=== PATIENT | male | born 1955 | race Caucasian/White ===

== ENCOUNTER 2020-08-12 09:04 | Outpatient (CLI) | payer MEDICARE | END 2020-08-12 09:05 | disposition home or self-care (01) | LOC: BICRAD 09:04 | PROVIDERS: ATTEND Internal Medicine Pulmonary Disease | DX: R06.00 Dyspnea, unspecified (principal) | CPT/HCPCS: 71046 ==

== ENCOUNTER 2023-03-03 05:08 | Inpatient (IN) | payer MEDICARE ==
[2023-03-03] MEDS ORDERED: Ipratropium/Albuterol 3 ML NEB ONE (05:27)
[2023-03-03] MEDS ORDERED: LevoFLOXacin 750 mg/D5W 150 ml Premix Bag ONE (05:27)
[2023-03-03] MEDS ORDERED: Magnesium 2 GM/50 ML BAG (IN WATER) ONE (05:29)
[2023-03-03 05:33] LABS: #Basophils 0.1 thou/uL (0.0-0.2); #Eosinphils 0.9 thou/uL (0.0-0.7); #Monocytes 0.5 thou/uL (0.11-0.59); #Neutrophils 9.7 thou/uL (1.40-6.50); %Eosinophils 6.8 % (0.0-10.0); %Lymphocytes 12.8 % (21.0-51.0); %Monocytes 4.2 % (0.0-10.0); %Neutrophils 74.9 % (42.0-75.0); Hematocrit 48.7 % (42.0-52.0); Hemoglobin 16.2 g/dL (14.0-18.0); Mean Corpuscular HGB CONC 33.3 g/dL (32.0-36.0); Mean Corpuscular Hemoglobin 30.1 pg (27.0-31.0); Mean Corpuscular Volume 90.5 fl (78.0-98.0); Mean Platelet Volume 10.8 fL (7.4-10.4); Platelet Count 296 10x3/uL (130-400); RBC Distribution Width 13.6 % (11.5-14.5); Red Blood Cell (RBC) Count 5.38 mill/uL (4.70-6.10)
[2023-03-03 05:45] LABS: Analyzer IN Cardio ER; Base Excess -5.7 mEq/L (-2.0 to +3.0); pH (venous) 7.349 (7.32-7.43)
[2023-03-03 05:46] LABS: Chloride (VBG) 107 mmol/L (98-106); Hematocrit-VBG 49 % (42.0-52.0); Hemoglobin (Hb) 16.6 g/dL (12.6-17.4); Potassium (VBG) 4.01 mmol/L (3.70-5.30); Sodium 142 mmol/L (133-146)
[2023-03-03 05:54] LABS: Acetaminophen Less than 10 mcg/mL (10.0-30.0); Alcohol Less than 10.0 mg/dL (Less than 10); Lipase 35 U/L (8-78); Magnesium 1.7 mg/dL (1.6-2.6); Salicylate Less than 8.0 mg/dL (15.0-30.0)
[2023-03-03 05:57] LABS: ALT (SGPT) 23 U/L (8-55); AST (SGOT) 19 U/L (5-34); Albumin 4.5 g/dL (3.4-4.8); Alkaline Phosphatase 69 U/L (40-110); Anion Gap 16 mmol/L (10-20); BUN (Urea Nitrogen) 12 mg/dL (8.4-25.7); Bilirubin, Total 0.7 mg/dL (0.2-1.2); Calc. Creatinine Clearance 0 mL/min (70-130); Calcium 9.5 mg/dL (7.8-10.44); Carbon Dioxide 20 mmol/L (23-31); Chloride 108 mmol/L (98-107); Estimated GFR 62; Globulin 2.5 g/dL (2.4-3.5); Glucose 129 mg/dL (80-115); Potassium 4.2 mmol/L (3.5-5.1); Sodium 140 mmol/L (136-145)
[2023-03-03 05:58] LABS: Troponin I Less than 0.010 ng/mL (< 0.028)
[2023-03-03 06:08] LABS: SARS-CoV-2 NAA Rapid Test Not Detected (NotDetected)
[2023-03-03] MEDS ORDERED: Ipratropium/Albuterol 3 ML NEB NEB PRN (07:32)
[2023-03-03] MEDS ORDERED: Ondansetron PF 4 MG/2 ML Vial IVP PRN (07:33)
[2023-03-03] MEDS ORDERED: Acetaminophen 325 MG TAB PO PRN (07:33)
[2023-03-03 08:42] LABS: Lactic Acid 2.4 mmol/L (0.5-2.2)
[2023-03-03 08:43] LABS: Troponin I Less than 0.010 ng/mL (< 0.028)
[2023-03-03] MEDS ORDERED: cefTRIAXone\\ROCEPHIN 1 GM in Sodium Chloride 0.9% 100 ML IVPB SCH (09:15)
[2023-03-03] MEDS: methylPREDNISolone Sod Succ 40 MG VIAL IVP SCH ×2 (11:45→17:20)
[2023-03-03] MEDS: Doxycycline 100 MG CAP PO SCH ×2 (11:46→20:07)
[2023-03-03] MEDS: Famotidine 20 MG TAB PO SCH ×2 (11:47→20:06)
[2023-03-03] MEDS: guaiFENesin ER 600 MG TAB PO SCH ×2 (11:48→20:07)
[2023-03-03 11:54] LABS: Troponin I Less than 0.010 ng/mL (< 0.028)
[2023-03-03] MEDS: Ipratropium/Albuterol 3 ML NEB NEB SCH ×2 (11:55→18:28)
[2023-03-03] MEDS: Mometasone/Formoterol 200/5 60 PUFF INH SCH (18:29)
[2023-03-04] MEDS: methylPREDNISolone Sod Succ 40 MG VIAL IVP SCH ×4 (00:13→17:27)
[2023-03-04] MEDS: Ipratropium/Albuterol 3 ML NEB NEB SCH ×4 (00:41→18:56)
[2023-03-04 05:34] LABS: #Monocytes 0.3 thou/uL (0.11-0.59); #Neutrophils 10.7 thou/uL (1.40-6.50); %Basophils 0.1 % (0.0-1.0); %Lymphocytes 8.6 % (21.0-51.0); %Monocytes 2.5 % (0.0-10.0); %Neutrophils 88.3 % (42.0-75.0); Hematocrit 43.2 % (42.0-52.0); Hemoglobin 14.6 g/dL (14.0-18.0); Mean Corpuscular HGB CONC 33.8 g/dL (32.0-36.0); Mean Corpuscular Hemoglobin 30.7 pg (27.0-31.0); Mean Corpuscular Volume 90.9 fl (78.0-98.0); Mean Platelet Volume 11.1 fL (7.4-10.4); Platelet Count 275 10x3/uL (130-400); RBC Distribution Width 13.5 % (11.5-14.5); Red Blood Cell (RBC) Count 4.75 mill/uL (4.70-6.10); White Blood Cell (WBC) Count 12.2 10x3/uL (4.8-10.8)
[2023-03-04 06:13] LABS: Anion Gap 11 mmol/L (10-20); BUN (Urea Nitrogen) 14 mg/dL (8.4-25.7); Calc. Creatinine Clearance 78 mL/min (70-130); Calcium 9.3 mg/dL (7.8-10.44); Carbon Dioxide 23 mmol/L (23-31); Chloride 107 mmol/L (98-107); Estimated GFR 71; Glucose 151 mg/dL (80-115); Potassium 4.1 mmol/L (3.5-5.1); Sodium 137 mmol/L (136-145)
[2023-03-04] MEDS: Mometasone/Formoterol 200/5 60 PUFF INH SCH ×2 (06:45→18:58)
[2023-03-04] MEDS: Famotidine 20 MG TAB PO SCH ×2 (08:40→20:18)
[2023-03-04] MEDS: guaiFENesin ER 600 MG TAB PO SCH ×2 (08:40→20:18)
[2023-03-04] MEDS: Doxycycline 100 MG CAP PO SCH ×2 (08:41→20:18)
[2023-03-04] MEDS: cefTRIAXone\\ROCEPHIN 1 GM in Sodium Chloride 0.9% 100 ML IVPB SCH (08:41)
[2023-03-04] MEDS: Benzonatate 100 MG CAP PO SCH ×3 (08:41→20:18)
[2023-03-04] MEDS ORDERED: Loratadine 10 MG TAB PO SCH (11:15)
[2023-03-04] MEDS: HYDROcodone/Acetaminophen 5/325 mg Tablet PO PRN ×2 (11:40→20:19)
[2023-03-04] MEDS: Sodium Chloride 0.65% Nasal 44 ML BOT EA NARE PRN (14:33)
[2023-03-05] MEDS: methylPREDNISolone Sod Succ 40 MG VIAL IVP SCH ×5 (00:45→23:59)
[2023-03-05] MEDS: Ipratropium/Albuterol 3 ML NEB NEB SCH ×6 (01:05→23:29)
[2023-03-05] MEDS: Mometasone/Formoterol 200/5 60 PUFF INH SCH ×2 (07:04→21:49)
[2023-03-05] MEDS: Benzonatate 100 MG CAP PO SCH ×3 (07:33→20:36)
[2023-03-05] MEDS: cefTRIAXone\\ROCEPHIN 1 GM in Sodium Chloride 0.9% 100 ML IVPB SCH (07:33)
[2023-03-05] MEDS: Doxycycline 100 MG CAP PO SCH ×2 (07:34→20:36)
[2023-03-05] MEDS: Famotidine 20 MG TAB PO SCH (07:34)
[2023-03-05] MEDS: guaiFENesin ER 600 MG TAB PO SCH ×2 (07:34→20:36)
[2023-03-05] MEDS: HYDROcodone/Acetaminophen 5/325 mg Tablet PO PRN ×2 (08:25→15:56)
[2023-03-05] MEDS: Sodium Chloride 0.65% Nasal 44 ML BOT EA NARE PRN (08:26)
[2023-03-06] MEDS: guaiFENesin/Codeine 200 mg/20 mg 10 ml Cup PO PRN ×2 (05:32→18:06)
[2023-03-06] MEDS: methylPREDNISolone Sod Succ 40 MG VIAL IVP SCH ×3 (05:33→21:16)
[2023-03-06] MEDS: Mometasone/Formoterol 200/5 60 PUFF INH SCH ×2 (07:18→18:27)
[2023-03-06] MEDS: Ipratropium/Albuterol 3 ML NEB NEB SCH ×3 (07:19→18:20)
[2023-03-06] MEDS ORDERED: FLU VACC QS2023(65UP)/MF59C/PF 60 MCG/0.5 ML SYRINGE IM ONE (09:00)
[2023-03-06] MEDS: Benzonatate 100 MG CAP PO SCH ×3 (09:25→21:14)
[2023-03-06] MEDS: guaiFENesin ER 600 MG TAB PO SCH ×2 (09:26→21:14)
[2023-03-06] MEDS: Doxycycline 100 MG CAP PO SCH ×2 (09:26→21:14)
[2023-03-06] MEDS: cefTRIAXone\\ROCEPHIN 1 GM in Sodium Chloride 0.9% 100 ML IVPB SCH (09:27)
[2023-03-06] MEDS ORDERED: Electrolyte Replacement Protocol 1 EACH FS SCH (16:45)
[2023-03-06] MEDS: Calcium Carbonate 500 MG ChewTAB PO PRN ×2 (18:07→21:15)
[2023-03-06 18:51] LABS: Magnesium 2.1 mg/dL (1.6-2.6)
[2023-03-06] MEDS: HYDROcodone/Acetaminophen 5/325 mg Tablet PO PRN (21:15)
[2023-03-07] MEDS: Ipratropium/Albuterol 3 ML NEB NEB SCH ×5 (00:42→23:14)
[2023-03-07 04:35] LABS: #Monocytes 0.6 thou/uL (0.11-0.59); #Neutrophils 9.2 thou/uL (1.40-6.50); %Basophils 0.1 % (0.0-1.0); %Lymphocytes 7.5 % (21.0-51.0); %Monocytes 5.7 % (0.0-10.0); Hematocrit 42.6 % (42.0-52.0); Hemoglobin 14.2 g/dL (14.0-18.0); Mean Corpuscular HGB CONC 33.3 g/dL (32.0-36.0); Mean Corpuscular Volume 89.9 fl (78.0-98.0); Mean Platelet Volume 11.1 fL (7.4-10.4); Platelet Count 266 10x3/uL (130-400); RBC Distribution Width 13.5 % (11.5-14.5); Red Blood Cell (RBC) Count 4.74 mill/uL (4.70-6.10); White Blood Cell (WBC) Count 10.7 10x3/uL (4.8-10.8)
[2023-03-07 04:58] LABS: Anion Gap 11 mmol/L (10-20); BUN (Urea Nitrogen) 20 mg/dL (8.4-25.7); Calc. Creatinine Clearance 82 mL/min (70-130); Calcium 8.8 mg/dL (7.8-10.44); Carbon Dioxide 25 mmol/L (23-31); Chloride 105 mmol/L (98-107); Estimated GFR 73; Glucose 132 mg/dL (80-115); Potassium 4.4 mmol/L (3.5-5.1); Sodium 137 mmol/L (136-145)
[2023-03-07] MEDS: Mometasone/Formoterol 200/5 60 PUFF INH SCH ×2 (06:45→18:57)
[2023-03-07] MEDS: guaiFENesin ER 600 MG TAB PO SCH ×2 (10:12→21:19)
[2023-03-07] MEDS: Benzonatate 100 MG CAP PO SCH ×3 (10:12→21:19)
[2023-03-07] MEDS: Doxycycline 100 MG CAP PO SCH ×2 (10:13→21:19)
[2023-03-07] MEDS: methylPREDNISolone Sod Succ 40 MG VIAL IVP SCH ×2 (10:13→21:20)
[2023-03-07] MEDS: guaiFENesin/Codeine 200 mg/20 mg 10 ml Cup PO PRN (21:22)
[2023-03-08] MEDS: Mometasone/Formoterol 200/5 60 PUFF INH SCH ×2 (06:58→19:17)
[2023-03-08] MEDS: Ipratropium/Albuterol 3 ML NEB NEB SCH ×4 (06:58→23:15)
[2023-03-08] MEDS: Benzonatate 100 MG CAP PO SCH ×3 (09:37→21:11)
[2023-03-08] MEDS: Doxycycline 100 MG CAP PO SCH ×2 (09:37→21:11)
[2023-03-08] MEDS: guaiFENesin ER 600 MG TAB PO SCH ×2 (09:38→21:11)
[2023-03-08] MEDS: methylPREDNISolone Sod Succ 40 MG VIAL IVP SCH ×2 (09:38→21:11)
[2023-03-08] MEDS: guaiFENesin/Codeine 200 mg/20 mg 10 ml Cup PO PRN (12:49)
[2023-03-08] MEDS ORDERED: guaiFENesin/Codeine 200 mg/20 mg 10 ml Cup PO SCH (14:00)
[2023-03-08] MEDS: guaiFENesin/Codeine 200 mg/20 mg 10 ml Cup PO SCH ×2 (18:02→23:05)
[2023-03-09] MEDS: guaiFENesin/Codeine 200 mg/20 mg 10 ml Cup PO SCH ×4 (05:52→23:30)
[2023-03-09] MEDS: Ipratropium/Albuterol 3 ML NEB NEB SCH ×4 (07:22→23:25)
[2023-03-09] MEDS: Mometasone/Formoterol 200/5 60 PUFF INH SCH ×2 (07:23→19:16)
[2023-03-09 08:16] VITALS: BMI 24.2
[2023-03-09] MEDS: Benzonatate 100 MG CAP PO SCH ×3 (09:32→21:18)
[2023-03-09] MEDS: Doxycycline 100 MG CAP PO SCH ×2 (09:33→21:17)
[2023-03-09] MEDS: guaiFENesin ER 600 MG TAB PO SCH ×2 (09:33→21:17)
[2023-03-09] MEDS: methylPREDNISolone Sod Succ 40 MG VIAL IVP SCH (09:33)
[2023-03-10] MEDS: guaiFENesin/Codeine 200 mg/20 mg 10 ml Cup PO SCH ×2 (05:52→12:02)
[2023-03-10] MEDS: Ipratropium/Albuterol 3 ML NEB NEB SCH ×2 (07:18→13:32)
[2023-03-10] MEDS: Mometasone/Formoterol 200/5 60 PUFF INH SCH (07:20)
[2023-03-10] MEDS: Benzonatate 100 MG CAP PO SCH (08:26)
[2023-03-10] MEDS: Doxycycline 100 MG CAP PO SCH (08:26)
[2023-03-10] MEDS: guaiFENesin ER 600 MG TAB PO SCH (08:31)
[2023-03-10] MEDS ORDERED: predniSONE 20 MG TAB PO SCH (09:00)
[2023-03-10 11:53] VITALS: BP 125/72; TEMP 98.8
== END 2023-03-10 16:15 | disposition home or self-care (01) | DRG 189 ==
LOC: ERS 05:08 → CCU 06:32 → T4-B 15:19 → 2NO 03-05 18:14
PROVIDERS: ADMIT Student in an Organized Health Care Education/Training Program; ATTEND Family Medicine
PROC: 4A043R1 Measurement of Venous Saturation, Peripheral, Percutaneous Approach (ICD-10-PCS; principal; 2023-03-03)
DX: J96.21 Acute and chronic respiratory failure with hypoxia (principal); J44.1 Chronic obstructive pulmonary disease with (acute) exacerbation; E87.20 Acidosis, unspecified; E78.2 Mixed hyperlipidemia; Z87.891 Personal history of nicotine dependence; Z82.49 Family history of ischemic heart disease and other diseases of the circulatory system; Z20.822 Contact with and (suspected) exposure to COVID-19; Z79.899 Other long term (current) drug therapy; R00.0 Tachycardia, unspecified; R55 Syncope and collapse
CPT/HCPCS: 36415; 71045; 80048; 80053; 80307; 82805; 83605; 83690; 83735; 83880; 84145; 84484; 85025; 85379; 86140; 87040; 87070; 87205; 93005; 93306; 94640; 94660; 94760; 96365; 96368; J0696; J1650; J1956; J2920; J3475; J3490; J7512; J7620

== ENCOUNTER 2023-06-22 08:49 | Outpatient (CLI) | payer MEDICARE | END 2023-06-22 08:50 | disposition home or self-care (01) | LOC: RAD 08:49 | PROVIDERS: ATTEND Internal Medicine Critical Care Medicine | DX: R06.00 Dyspnea, unspecified (principal) | CPT/HCPCS: 71046 ==

== ENCOUNTER 2023-07-06 15:07 | Outpatient (CLI) | payer MEDICARE | END 2023-07-06 15:08 | disposition home or self-care (01) | LOC: RAD 15:07 | PROVIDERS: ATTEND Internal Medicine Critical Care Medicine | DX: R06.00 Dyspnea, unspecified (principal) | CPT/HCPCS: 71046 ==

== ENCOUNTER 2023-11-11 04:45 | Inpatient (IN) | payer MEDICARE ==
[2023-11-11] MEDS ORDERED: Albuterol 2.5 MG (3 mL) NEB ONE (04:47)
[2023-11-11 05:09] LABS: Actual Bicarbonate (HCO3v) 19.2 mEq/L (22-28); Analyzer IN Cardio ER; Calcium, Ionized (venous) 1.13 mmol/L (1.16-1.32); Chloride (VBG) 108 mmol/L (98-106); Hematocrit-VBG 45 % (42.0-52.0); Hemoglobin (Hb) 15.2 g/dL (12.6-17.4); Potassium (VBG) 3.74 mmol/L (3.70-5.30); Sodium 142 mmol/L (133-146); pH (venous) 7.374 (7.32-7.43)
[2023-11-11] MEDS ORDERED: Morphine 4 MG/ML VIAL ONE (05:27)
[2023-11-11] MEDS ORDERED: Ondansetron PF 4 MG/2 ML Vial ONE (05:28)
[2023-11-11] MEDS ORDERED: Sodium Chloride 0.9% 100 ML ONE (05:28)
[2023-11-11] MEDS ORDERED: cefTRIAXone (ROCEPHIN) 1 GM VIAL ONE (05:28)
[2023-11-11 05:40] LABS: #Basophils 0.14 10x3/uL (0.0-0.2); %Eosinophils 11.9 % (0.0-10.0); %Lymphocytes 9.3 % (21.0-51.0); %Neutrophils 73.4 % (42.0-75.0); Hematocrit 44.6 % (42.0-52.0); Hemoglobin 14.3 g/dL (14.0-18.0); Mean Corpuscular HGB CONC 32.1 g/dL (32.0-36.0); Mean Corpuscular Hemoglobin 29.4 pg (27.0-31.0); Mean Corpuscular Volume 91.6 fL (78.0-98.0); Mean Platelet Volume 10.9 fL (7.4-10.4); Platelet Count 250 10x3/uL (130-400); RBC Distribution Width 14.6 % (11.5-14.5); Red Blood Cell (RBC) Count 4.87 mill/uL (4.70-6.10)
[2023-11-11 05:58] LABS: ALT (SGPT) 26 U/L (8-55); AST (SGOT) 24 U/L (5-34); Albumin 3.3 g/dL (3.4-4.8); Alkaline Phosphatase 59 U/L (40-110); Anion Gap 17 mmol/L (10-20); BUN (Urea Nitrogen) 13 mg/dL (8.4-25.7); Bilirubin, Total 1.1 mg/dL (0.2-1.2); Calc. Creatinine Clearance 0 mL/min (70-130); Calcium 8.7 mg/dL (7.8-10.44); Carbon Dioxide 17 mmol/L (23-31); Chloride 109 mmol/L (98-107); Estimated GFR 80; Glucose 134 mg/dL (80-115); Magnesium 2.6 mg/dL (1.6-2.6); Potassium 3.5 mmol/L (3.5-5.1); Protein, Total 6.3 g/dL (5.8-8.1); Sodium 139 mmol/L (136-145)
[2023-11-11 06:03] LABS: Influenza A by NAA Not Detected (NotDetected); Influenza B by NAA Not Detected (NotDetected); SARS-CoV-2 NAA Rapid Test Not Detected (NotDetected)
[2023-11-11] MEDS ORDERED: Azithromycin 500 MG VIAL ONE (06:25)
[2023-11-11 06:32] LABS: Troponin I Less than 0.010 ng/mL (< 0.028)
[2023-11-11] MEDS ORDERED: Ondansetron PF 4 MG/2 ML Vial IVP PRN (07:31)
[2023-11-11] MEDS ORDERED: Ondansetron ODT 4 MG TAB PO PRN (07:31)
[2023-11-11] MEDS ORDERED: HYDROcodone/Acetaminophen 5/325 mg Tablet PO PRN ×2 (07:31)
[2023-11-11] MEDS ORDERED: Acetaminophen 650 MG Suppository PR PRN (07:31)
[2023-11-11 08:32] LABS: Troponin I Less than 0.010 ng/mL (< 0.028)
[2023-11-11 08:37] VITALS: BMI 26.8
[2023-11-11] MEDS: Doxycycline 100 MG CAP PO SCH (08:46)
[2023-11-11] MEDS: Enoxaparin 40 MG (0.4 mL) SYRINGE SC SCH (08:47)
[2023-11-11] MEDS: methylPREDNISolone Sod Succ/PF 125 MG/2 ML VIAL IVP SCH (08:47)
[2023-11-11] MEDS: Pantoprazole 40 MG VIAL IVP SCH (08:47)
[2023-11-11] MEDS: Mometasone 200 MCG/Formoterol 5 MCG 120 PUFF INHALER INH SCH ×2 (09:00→18:59)
[2023-11-11 09:28] LABS: Magnesium 2.3 mg/dL (1.6-2.6); Phosphorus 2.6 mg/dL (2.3-4.7)
[2023-11-11] MEDS: Ipratropium/Albuterol 3 ML NEB NEB SCH (10:56)
[2023-11-11] MEDS ORDERED: Iopamidol-370 76% 500 ML MDV (1 ML CHARGE) ONE (12:33)
[2023-11-11 14:19] LABS: Troponin I Less than 0.010 ng/mL (< 0.028)
[2023-11-11] MEDS: Atorvastatin Calcium 10 MG TAB PO SCH (20:39)
[2023-11-12 04:36] LABS: #Basophils Less than 0.03 10x3/uL (0.0-0.2); #Eosinphils Less than 0.03 10x3/uL (0.0-0.7); %Basophils 0.1 % (0.0-1.0); %Eosinophils 0.1 % (0.0-10.0); %Lymphocytes 8.3 % (21.0-51.0); %Monocytes 6.5 % (0.0-10.0); %Neutrophils 84.6 % (42.0-75.0); Hematocrit 42.6 % (42.0-52.0); Hemoglobin 13.8 g/dL (14.0-18.0); Mean Corpuscular HGB CONC 32.4 g/dL (32.0-36.0); Mean Corpuscular Hemoglobin 29.7 pg (27.0-31.0); Mean Corpuscular Volume 91.8 fL (78.0-98.0); Mean Platelet Volume 10.9 fL (7.4-10.4); Platelet Count 263 10x3/uL (130-400); RBC Distribution Width 14.5 % (11.5-14.5); Red Blood Cell (RBC) Count 4.64 mill/uL (4.70-6.10)
[2023-11-12 04:50] LABS: Anion Gap 13 mmol/L (10-20); BUN (Urea Nitrogen) 17 mg/dL (8.4-25.7); Calc. Creatinine Clearance 97 mL/min (70-130); Carbon Dioxide 20 mmol/L (23-31); Chloride 110 mmol/L (98-107); Estimated GFR 86; Glucose 123 mg/dL (80-115); Potassium 4.2 mmol/L (3.5-5.1); Sodium 139 mmol/L (136-145)
[2023-11-12] MEDS: Ipratropium/Albuterol 3 ML NEB NEB PRN ×2 (09:27→13:16)
[2023-11-12] MEDS: guaiFENesin/Codeine 200 mg/20 mg 10 ml Cup PO PRN (13:17)
[2023-11-12] MEDS: Ipratropium/Albuterol 3 ML NEB NEB SCH (13:56)
[2023-11-12] MEDS: ALPRAZolam 0.25 MG TAB PO PRN (17:38)
[2023-11-13] MEDS: Pantoprazole DR 40 MG TAB PO SCH (09:59)
[2023-11-13 15:48] VITALS: BMI 25.5
[2023-11-13] MEDS: Arformoterol 15 MCG/2 ML NEB NEB SCH (19:12)
[2023-11-13] MEDS: methylPREDNISolone Sod Succ/PF 125 MG/2 ML VIAL IVP SCH (20:41)
[2023-11-14] MEDS: methylPREDNISolone Sod Succ/PF 125 MG/2 ML VIAL IVP SCH (06:51)
[2023-11-14] MEDS: Arformoterol 15 MCG/2 ML NEB NEB SCH (07:15)
[2023-11-14] MEDS: methylPREDNISolone Sod Succ 40 MG VIAL IVP SCH (14:54)
[2023-11-14] MEDS: Acetaminophen 325 MG TAB PO PRN (21:54)
[2023-11-14] MEDS: diphenhydrAMINE 25 MG CAP PO SCH (23:37)
[2023-11-15] MEDS: methylPREDNISolone Sod Succ 40 MG VIAL IVP SCH (21:11)
[2023-11-16 05:03] LABS: Hematocrit 40.7 % (42.0-52.0); Hemoglobin 13.5 g/dL (14.0-18.0); Mean Corpuscular HGB CONC 33.2 g/dL (32.0-36.0); Mean Corpuscular Hemoglobin 29.3 pg (27.0-31.0); Mean Corpuscular Volume 88.5 fL (78.0-98.0); Mean Platelet Volume 11.5 fL (7.4-10.4); Platelet Count 245 10x3/uL (130-400); RBC Distribution Width 14.6 % (11.5-14.5)
[2023-11-16 05:23] LABS: Anion Gap 13 mmol/L (10-20); BUN (Urea Nitrogen) 21 mg/dL (8.4-25.7); Calc. Creatinine Clearance 80 mL/min (70-130); Calcium 8.8 mg/dL (7.8-10.44); Carbon Dioxide 22 mmol/L (23-31); Chloride 105 mmol/L (98-107); Estimated GFR 73; Glucose 146 mg/dL (80-115); Sodium 136 mmol/L (136-145)
[2023-11-16] MEDS: diphenhydrAMINE 50 MG/ML VIAL IVP SCH (13:40)
[2023-11-17] MEDS: methylPREDNISolone Sod Succ 40 MG VIAL IVP SCH (09:09)
[2023-11-17 10:27] VITALS: BP 153/93; TEMP 98.3
== END 2023-11-17 11:07 | disposition home or self-care (01) | DRG 192 ==
LOC: ERS 04:45 → SUATTDRO 04:45 → 2NO 08:16
PROVIDERS: ADMIT Family Medicine; ATTEND Internal Medicine
DX: J44.1 Chronic obstructive pulmonary disease with (acute) exacerbation (principal); K21.9 Gastro-esophageal reflux disease without esophagitis; Z79.899 Other long term (current) drug therapy; E78.00 Pure hypercholesterolemia, unspecified; Z87.891 Personal history of nicotine dependence; R00.0 Tachycardia, unspecified; K59.00 Constipation, unspecified
CPT/HCPCS: 36415; 71045; 71275; 74177; 80048; 80053; 82805; 83735; 83880; 84100; 84484; 85025; 85027; 87633; 93005; 94640; 96365; 96367; 96375; C9113; J0456; J0696; J1200; J1650; J2270; J2405; J2920; J2930; J3490; J7611; J7620; Q9967